=== PATIENT | female | born 1955 | race Asian ===

== ENCOUNTER 2016-03-25 21:25 | Emergency (ER) | payer SELFPAY ==
[~2016-03-25] VITALS: Ht 162.6 cm; Wt 67.0 kg
[2016-03-25 21:26] VITALS: BP 137/91; PULSE 83; RESP 14; TEMP 98; O2SAT 97
== END 2016-03-26 00:33 | disposition left against medical advice (07) ==
LOC: NED 21:25
DX: Z53.21 Procedure and treatment not carried out due to patient leaving prior to being seen by health care provider (principal)
CPT/HCPCS: 99281